=== PATIENT | male | born 1950 | race Caucasian/White ===

== ENCOUNTER 2021-07-04 04:08 | Emergency (ER) | payer MEDICARE, OTHER ==
[2021-07-04 04:48] LABS: TROPONIN I HIGH SENSITIVITY 7.5 pg/mL (<=60.3)
== END 2021-07-04 07:34 | disposition home or self-care (01) ==
LOC: JP.ED 04:08
DX: K21.00 Gastro-esophageal reflux disease with esophagitis, without bleeding (principal); Z79.899 Other long term (current) drug therapy; Z79.82 Long term (current) use of aspirin
CPT/HCPCS: 36415; 71046; 71046-26; 80053; 84484; 85025; 85379; 86140; 93005; 93010; 99282; 99285-25